=== PATIENT | male | born 1975 | race Caucasian/White ===

== ENCOUNTER 2016-08-25 11:56 | Observation (INO) ==
[2016-08-25 12:49] LABS: Bilirubin,Urine Negative (Negative); Blood,Urine Small (Negative); Clarity,Urine Clear (Clear); Color,Urine Yellow (Yellow); Glucose,Urine (UA) Normal (Normal); Ketones,Urine Negative (Negative); Leukocyte Esterase,Urine Negative (Negative); Nitrite,Urine Negative (Negative); Protein,Urine Negative (Neg-Trace); Specific Gravity,Urine 1.025 (1.010-1.025); Urobilinogen,Urine Normal (Normal)
[2016-08-25 12:52] LABS: Bacteria,Urine None Seen per hpf (None-Few); Hyaline Casts,Urine None Seen per lpf (None-Few); Squamous Epithelial Cell,Urine Few per lpf (None-Few); WBC,Urine 0-3 per hpf (0-3)
[2016-08-25] MEDS ORDERED: *HR* Morphine 2 MG/ML SYRINGE IVP ONE (15:15)
[2016-08-25] MEDS ORDERED: Ondansetron 4 MG/2 ML VIAL IVP ONE (15:15)
--- NOTE | 2016-08-25 15:19 | Emergency Department Note ---
Disposition Clinical Impression: Pancreatitis, Nausea and vomiting Disposition: Admitted As Inpatient Condition: Fair Referrals: NO,PCP [Primary Care Provider] - Forms: Work/School Release, ED Satisfaction Letter Abdominal Pain HPI - General Chief Complaint: ED Abdominal Pain Stated Complaint: ABD pain Time Seen by Provider: 08/25/16 15:05 Source: patient Limitations: no limitations Nursing Notes Reviewed: Yes Vital Signs Reviewed: Yes - History of Present Illness HPI Narrative: Patient is a 41-year-old white male who presents to emergency department with his today with complaints of 36 hour history of intermittent right upper quadrant abdominal pain. Patient rates the pain about a 5 out of 10 in severity currently but states that the pain has been waxing and waning, over the last 36 hours. Patient was initially seen at the urgent care this morning given a GI cocktail with no improvement and was told to come to the emergency department for evaluation. Patient states that the pain seems worsened by eating anything, and nothing seems to make it better. Patient denies any fevers or chills associated with this pain, has been nauseated throughout the last 36 hours and had 1 episode of nonbloody nonbilious vomitus. Patient denies any urinary symptoms no flank discomfort or flank pain, and no bowel changes with these symptoms. Patient had no prior surgeries to his abdomen or pelvis in the past. Patient denies any or testicular symptoms. Patient denies any pain into his chest or thoracic back area. Pain Scale: 10 - Related Data Home Medications Medication Instructions Recorded Confirmed Multivitamin [Multi-Day Vitamins] 1 each PO DAILY 08/25/16 08/25/16 Previous Rx's Medication Instructions Recorded Dicyclomine [Bentyl] 10 mg PO TID PRN #10 capsule 08/25/16 Omeprazole 20 mg PO DAILY #7 tablet. 08/25/16 Ondansetron HCl [Zofran] 4 mg SL TID PRN #10 tablet 08/25/16 Allergies Allergy/AdvReac Type Severity Reaction Status Date / Time colamycin ear drops Allergy Rash Uncoded 05/07/16 20:57 All systems ED: reviewed and negative except as stated. Constitutional: Denies: fever, chills Cardiovascular: Denies: chest pain, palpitations Respiratory: Denies: cough, dyspnea Gastrointestinal: Reports: as per HPI, abdominal pain, nausea, vomiting. Denies : diarrhea, constipation, melena, hematochezia Genitourinary: Denies: urgency, dysuria, frequency, hematuria Musculoskeletal: Denies: back pain, neck pain, myalgia Integumentary: Denies: rash Neurological: Denies: headache, numbness, paresthesias Psychiatric: Denies: anxiety, depression Abdominal Pain PMH - Past Medical History Medical history: Reports: no medical history Male Surgical History: Reports: other Psychiatric history: Reports: no psych history - Social History Smoking status: Never smoker Alcohol use: Reports: none Drug use: Reports: none Physical Exam - General Limitations: no limitations General appearance: alert, in no apparent distress - Head Head exam: atraumatic, normocephalic - Eye Eye exam: Present: normal appearance, PERRL, EOMI. Absent: scleral icterus - ENT ENT exam: normal oropharynx, mucous membranes moist - Neck Neck exam: Present: normal inspection, full ROM. Absent: lymphadenopathy - Chest Chest inspection: Present: normal inspection. Absent: tenderness - Respiratory Respiratory exam: Present: normal lung sounds bilaterally. Absent: respiratory distress, wheezes - Cardiovascular Cardiovascular exam: Present: regular rate, normal rhythm, normal heart sounds. Absent: tachycardia - Abdominal Exam Abdominal exam: Present: soft, tenderness, normal bowel sounds (Patient with moderate tenderness to palpation in the right upper quadrant.). Absent: distention, guarding, rebound, rigidity Abdominal tenderness: Present: RLQ, epigastrium - Rectal Exam Rectal exam: Present: deferred - Extremities Exam Extremities exam: Present: normal inspection, full ROM, normal capillary refill. Absent: tenderness, pedal edema - Back Exam Back exam: Present: normal inspection, full ROM. Absent: CVA tenderness (R), CVA tenderness (L) - Neurological Exam Neurological exam: Present: alert, oriented X3, CN II-XII intact, normal gait. Absent: motor sensory deficit - Psychiatric Psychiatric exam: Present: normal affect, normal mood - Skin Skin exam: Present: warm, dry, normal color. Absent: rash Course Course Narrative: Patient is 41-year-old white male who presents to the emergency room with a 2 day history of right upper quadrant abdominal pain which is been waxing and waning in severity associated with nausea vomiting. Patient states the pain is nonradiating. Patient is hemodynamically stable and afebrile on initial presentation. At this time we can go ahead and obtain IV saline while in administer pain meds and antiemetics. We will get a full lab panel including hepatic panel and lipase and lactate. Patient's exam at this time is suspicious for gallbladder etiology so will initially obtain a gallbladder ultrasound. We will reevaluate following pain medicine administration. - Reevaluation(s) Reevaluation #1: On reevaluation patient's vital signs are stable, he is resting more comfortably stating significant pain relief following pain meds and antiemetics IV. Patient's labs really unremarkable he has a normal white count, H&H are stable, entire comprehensive metabolic panel is within normal limits LFTs total bili are all within normal limits but he does have an elevated lipase which is twice the normal range. Findings suspicious for possible pancreatitis. Since gallbladder disease could be the underlying etiology for this we will proceed with gallbladder ultrasound which is pending at this time. On, reevaluation patient with mild tenderness in the epigastrium and right upper quadrant without peritoneal signs. Patient clinically improved with pain medicines and awaiting ultrasound results. Time: 16:24 Reevaluation #2: Discussed ultrasound results with patient, patient still resting comfortable with this time and is receiving IV fluids. Do not feel CT imaging will add anything to the patient's management at this point in time, there is no evidence of right Warner on ultrasound and the portions of the pancreas that were visualized were within normal limits. Patient denies any alcohol use and there is no findings of gallbladder disease on the ultrasound. This is his first episode of pancreatitis and the etiology is unclear. Patient remains hemodynamically stable at this time and agrees to admission for further evaluation hospitalist has been paged Gallbladder Ultrasound 08/25/16 15:15 IMPRESSION: Hepatic steatosis. D/ / Tawanda Hsieh MD / Tawanda Hsieh MD Interpreting Provider: Tawanda Hsieh MD Time: 17:22 Reevaluation #3: Test with hospitalist at 1553 except the patient for admission and requested maintenance IV fluids to be added. Patient remains free resting comfortably with stable vital signs at this time. Time: 17:59 Vital Signs Temperature 98.3 F 08/25/16 12:26 Pulse Rate 67 08/25/16 12:26 Respiratory Rate 16 08/25/16 12:26 Blood Pressure 131/74 08/25/16 12:26 O2 Sat by Pulse Oximetry 98 08/25/16 12:26 Temperature 98.3 F 08/25/16 12:26 Pulse Rate 67 08/25/16 12:26 Respiratory Rate 16 08/25/16 12:26 Blood Pressure 131/74 08/25/16 12:26 O2 Sat by Pulse Oximetry 98 08/25/16 12:26 Oxygen Delivery Oxygen Delivery Room Air Abdominal Pain - Differential Diagnosis Differential Diagnosis: Likely: abdominal pain non-specific, pancreatitis, other (GERD, cholecystitis, lithiasis, choledocholithiasis, peptic ulcer disease ) - Medical Records Medical records reviewed: Yes I reviewed the patient's medical records. - Lab Data Lab results reviewed: Yes I reviewed the patient's lab results. Result diagrams: 08/25/16 15:35 08/25/16 15:35 Lab Results 08/25/16 08/25/16 08/25/16 Range/Units 12:35 15:35 15:35 WBC 7.3 (4.3-11.1) K/mcL RBC 4.95 (4.19-5.50) M/mcL Hgb 15.7 (12.9-16.9) g/dL Hct 46.4 (37.5-50.1) % MCV 93.7 (83.0-100.0) fL MCH 31.7 (28.0-33.3) pg MCHC 33.8 (31.6-35.5) g/dL RDW 11.9 (11.5-14.5) % Plt Count 234 (140-400) K/mcL MPV 10.0 (9.4-12.4) fL Immature Gran % 0.3 (0-4) % Seg Neutrophils % 53.3 % Lymphocytes % 31.1 % Monocytes % 12.3 % Eosinophils % 2.5 % Basophils % 0.5 % Neutrophils # 3.9 (1.6-8.9) K/mcL Lymphocytes # 2.3 (0.6-4.6) K/mcL Monocytes # 0.9 (0.0-1.3) K/mcL Eosinophils # 0.2 (0.0-0.6) K/mcL Basophils # 0.0 (0.0-0.2) K/mcL Sodium 141 (136-145) mEq/L Potassium 3.7 (3.5-4.5) mEq/L Chloride 105 (98-109) mEq/L Carbon Dioxide 28 (19-29) mEq/L BUN 14 (8-26) mg/dL Creatinine 0.86 (0.72-1.25) mg/dL Est GFR ( Amer) > 60 (> 60) Est GFR (Non-Af Amer) > 60 (> 60) BUN/Creatinine Ratio 16 (6-26) Glucose 90 (70-99) mg/dL Calculated Osmolality 292 (280-300) Lactic Acid (0.5-2.2) mmol/L Calcium 9.5 (8.6-10.8) mg/dL Total Bilirubin 0.7 (0.2-1.2) mg/dL Direct Bilirubin 0.2 (0.0-0.5) mg/dL Indirect Bilirubin 0.5 (0.0-1.2) mg/dL AST 23 (5-34) Units/L ALT 42 (0-55) Units/L Alkaline Phosphatase 75 (38-126) Units/L Serum Total Protein 7.3 (6.0-8.3) g/dL Albumin 4.1 (3.5-5.0) g/dL Globulin 3.2 (2.4-3.5) g/dL Albumin/Globulin Ratio 1.3 (1.1-2.2) Lipase 147 H (8-78) Units/L Urine Color Yellow (Yellow) Urine Clarity Clear (Clear) Urine pH 6.0 (5.0-8.0) pH Units Ur Specific Spencer 1.025 (1.010-1.025) Urine Protein Negative (Neg-Trace) mg/dL Urine Glucose (UA) Normal (Normal) mg/dL Urine Ketones Negative (Negative) mg/dL Urine Blood Small H (Negative) Urine Nitrite Negative (Negative) Urine Bilirubin Negative (Negative) Urine Urobilinogen Normal (Normal) mg/dL Ur Leukocyte Esterase Negative (Negative) Urine Microscopic RBC 5-15 H (0-3) per hpf Urine Microscopic WBC 0-3 (0-3) per hpf Ur Squamous Epith Cells Few (None-Few) per lpf Urine Bacteria None Seen (None-Few) per hpf Hyaline Casts None Seen (None-Few) per lpf Ur Culture Indicated? NO (NO) 08/25/16 Range/Units 15:51 WBC (4.3-11.1) K/mcL RBC (4.19-5.50) M/mcL Hgb (12.9-16.9) g/dL Hct (37.5-50.1) % MCV (83.0-100.0) fL MCH (28.0-33.3) pg MCHC (31.6-35.5) g/dL RDW (11.5-14.5) % Plt Count (140-400) K/mcL MPV (9.4-12.4) fL Immature Gran % (0-4) % Seg Neutrophils % % Lymphocytes % % Monocytes % % Eosinophils % % Basophils % % Neutrophils # (1.6-8.9) K/mcL Lymphocytes # (0.6-4.6) K/mcL Monocytes # (0.0-1.3) K/mcL Eosinophils # (0.0-0.6) K/mcL Basophils # (0.0-0.2) K/mcL Sodium (136-145) mEq/L Potassium (3.5-4.5) mEq/L Chloride (98-109) mEq/L Carbon Dioxide (19-29) mEq/L BUN (8-26) mg/dL Creatinine (0.72-1.25) mg/dL Est GFR ( Amer) (> 60) Est GFR (Non-Af Amer) (> 60) BUN/Creatinine Ratio (6-26) Glucose (70-99) mg/dL Calculated Osmolality (280-300) Lactic Acid 0.7 (0.5-2.2) mmol/L Calcium (8.6-10.8) mg/dL Total Bilirubin (0.2-1.2) mg/dL Direct Bilirubin (0.0-0.5) mg/dL Indirect Bilirubin (0.0-1.2) mg/dL AST (5-34) Units/L ALT (0-55) Units/L Alkaline Phosphatase (38-126) Units/L Serum Total Protein (6.0-8.3) g/dL Albumin (3.5-5.0) g/dL Globulin (2.4-3.5) g/dL Albumin/Globulin Ratio (1.1-2.2) Lipase (8-78) Units/L Urine Color (Yellow) Urine Clarity (Clear) Urine pH (5.0-8.0) pH Units Ur Specific Spencer (1.010-1.025) Urine Protein (Neg-Trace) mg/dL Urine Glucose (UA) (Normal) mg/dL Urine Ketones (Negative) mg/dL Urine Blood (Negative) Urine Nitrite (Negative) Urine Bilirubin (Negative) Urine Urobilinogen (Normal) mg/dL Ur Leukocyte Esterase (Negative) Urine Microscopic RBC (0-3) per hpf Urine Microscopic WBC (0-3) per hpf Ur Squamous Epith Cells (None-Few) per lpf Urine Bacteria (None-Few) per hpf Hyaline Casts (None-Few) per lpf Ur Culture Indicated? (NO) - Radiology Data Radiology results reviewed: Yes I reviewed the patient's radiology results.
[2016-08-25 15:46] LABS: Basophils % 0.5 %; Eosinophils # 0.2 K/mcL (0.0-0.6); Eosinophils % 2.5 %; Hematocrit 46.4 % (37.5-50.1); Hemoglobin 15.7 g/dL (12.9-16.9); Immature Granulocytes % 0.3 % (0-4); Lymphocytes # 2.3 K/mcL (0.6-4.6); Lymphocytes % 31.1 %; Mean Corpuscular HGB Conc 33.8 g/dL (31.6-35.5); Mean Corpuscular Hemoglobin 31.7 pg (28.0-33.3); Mean Corpuscular Volume 93.7 fL (83.0-100.0); Monocytes # 0.9 K/mcL (0.0-1.3); Monocytes % 12.3 %; Neutrophils # 3.9 K/mcL (1.6-8.9); Platelet Count 234 K/mcL (140-400); Red Blood Count 4.95 M/mcL (4.19-5.50); Red Cell Distribution Width 11.9 % (11.5-14.5); Segmented Neutrophils % 53.3 %
[2016-08-25 16:02] LABS: Alanine Aminotransferase 42 Units/L (0-55); Albumin 4.1 g/dL (3.5-5.0); Albumin/Globulin Ratio 1.3 (1.1-2.2); Alkaline Phosphatase 75 Units/L (38-126); Aspartate Amino Transferase 23 Units/L (5-34); BUN/Creatinine Ratio 16 (6-26); Bilirubin,Direct 0.2 mg/dL (0.0-0.5); Bilirubin,Indirect 0.5 mg/dL (0.0-1.2); Bilirubin,Total 0.7 mg/dL (0.2-1.2); Blood Urea Nitrogen 14 mg/dL (8-26); Calcium 9.5 mg/dL (8.6-10.8); Carbon Dioxide 28 mEq/L (19-29); Chloride 105 mEq/L (98-109); Globulin 3.2 g/dL (2.4-3.5); Glucose 90 mg/dL (70-99); Lipase 147 Units/L (8-78); Osmolality,Calculated 292 (280-300); Potassium 3.7 mEq/L (3.5-4.5); Sodium 141 mEq/L (136-145); Total Protein 7.3 g/dL (6.0-8.3); eGFR For African Americans > 60 (> 60); eGFR For Non-African Americans > 60 (> 60)
[2016-08-25] MEDS ORDERED: 0.9 % Sodium Chloride 1,000 ML IVC ONE (16:21)
[2016-08-25] MEDS ORDERED: 0.9 % Sodium Chloride 1,000 ML IVC SCH ×2 (18:00→20:00)
[2016-08-25] MEDS ORDERED: Ondansetron 4 MG/2 ML VIAL IVP PRN (19:55)
[2016-08-25] MEDS ORDERED: Naloxone 0.4 MG/ML INJ IVP PRN (19:55)
--- NOTE | 2016-08-25 19:58 | Internal Med History&Physical ---
Date of Encounter: 08/25/16 Time of Encounter: 19:40 Assessment and Plan (1) RUQ pain Current visit: Yes Status: Acute patient who is overweight and no prior similar presentation comes in with RUQ pain concerning for cholelithiasis vs PUD vs GERD vs pancreatitis, his chemistry and clinical presentation does not fit acute pancreatitis, his abdominal USG did not suggest gallstones, it could be that the stones have passed or this is of liver pathology, his USG showed hepatic steatosis, we will admit for symptoms control and monitor vitals overnight, should his symptoms worsen we will consider abdomino-pelvic CT for further evaluation (2) Overweight (BMI 25.0-29.9) Current visit: Yes Status: Chronic based on BMI, we will get Nutrition to weigh in, particularly regarding the associated hepatic steatosis Internal Medicine - H&P: HPI Chief complaint: abdominal pain Admitted From: Emergency Dept Plans for Post Hospital Care: Home History of present illness: Mr. Eisenberg is a 41 year old male with no prior presentation comes in with abdominal pain. He was in his usual state of health until about 36 hours prior to presentation when he began to have right upper quadrant pain, The pain is described as squeezing, intermittent, lasts for about 15-20 minutes, repeat episodes lasts longer. It is 5/10 in severity, non radiating. The pain is associated with nausea, with non bilious vomiting. He also had diarrhea that was non bloody. He denies fever or chills. He came to the ER because the episodes were getting increasingly longer, he could not advance any aggravating or alleviating factors. Past Med Surg Social Fam HX - Past Medical History Source: patient Medical history: no medical history Psychiatric history: no psych history - Past Surgical History Surgical History: other (broken jaw in 1994 requiring wires, left wrist ganglion cyst removal) - Social History Smoking Status: Never smoker Smokeless Tobacco Status: No Alcohol use: none Drug use: none Occupational status: employed (as an personal assistant) Current living situation: Home - Independent Activity Level: Independent ambulation Additional social history: with 2 daughters - Family History Father Living Status: Still Living Hx Family Cardiac Disorders: Yes (AFIB) Hx Family Respiratory Disorders: No Hx Family Cancer: Yes (Kidney Cancer, Lung and Brain) Hx Family GI Disorders: No Hx Family Genitourinary Disorders: No Hx Family Endocrine Disorder: Yes (Diabetes) Hx Family Musculoskeletal Disorders: No Hx Family Neuromuscular Disorders: No Hx Family Neurologic Disorders: No Hx Family HEENT Disorders: No Hx Family Autoimmune Disorders: No Hx Family Reproductive Disorders: No Hx Family Psychosocial Disorders: No Hx Family Medical Disorders: No - Additional Family History Additional family history: his paternal father and mother both had cancer, his father is alive though he has metastatic kidney cancer to the lung and brain, he also has HTN, his mother is alive and has well controlled DM type 2, no known family history of GI problems Internal Medicine - H&P: Meds Dicyclomine [Bentyl] 10 mg PO TID PRN #10 capsule 08/25/16 [Rx] Multivitamin [Multi-Day Vitamins] 1 each PO DAILY 08/25/16 [History] Omeprazole 20 mg PO DAILY #7 tablet. 08/25/16 [Rx] Ondansetron HCl [Zofran] 4 mg SL TID PRN #10 tablet 08/25/16 [Rx] Allergies colamycin ear drops Allergy (Uncoded 05/07/16 20:57) Rash All Systems PM: A 10-system review of systems was performed and is negative for pertinent findings except as documented above in the HPI. - Constitutional Vitals: Temp Pulse Resp BP Pulse Ox 98.3 F 70 14 136/89 98 08/25/16 12:26 08/25/16 18:02 08/25/16 18:39 08/25/16 18:39 08/25/16 18:02 PHYSICAL EXAMINATION: GENERAL: Adult male, lying in bed with no sign of pain or distress, obese looking, HEENT: NC/AT, EOMI, PERRLA, anicteric sclera, normal conjunctiva, supple, clear nares, moist mucous membranes, clear oropharynx, central uvula RESP: no chest wall tenderness with palpation, lungs are clear to auscultation bilaterally, good AE bilaterally, No crackles or wheeze CARDIO: Normal hearts sounds; S1 and 2, RRR with no murmurs, no JVD, no ankle edema GI: Soft, full, RUQ tenderness with no guarding or rebound tenderness, no organomegaly felt, normal bowel sounds heard MUSCULOSKELETAL: grossly normal movements bilaterally, no deformities noted, no calf tenderness EXTREMITIES: No clubbing, cyanosis or edema, NEUROLOGIC: CN 2-12 intact grossly. No motor/sensory deficit appreciated, PSYCHIATRY: AAO x 3. Mood is fair, exhibits appropriate judgement SKIN: left wrist surgical scar Internal Med - H&P Results - Labs CBC & Chem 7: 08/26/16 04:23 08/26/16 04:23 - Diagnostic Studies US - abdomen Status: image reviewed by me
[2016-08-25] MEDS: *HR* Heparin 5,000 UNIT/ML VIAL SQ SCH (22:11)
[2016-08-25] MEDS: *HR* Morphine 2 MG/ML SYRINGE IVP PRN (22:15)
[2016-08-26 05:34] LABS: Basophils % 0.6 %; Eosinophils # 0.2 K/mcL (0.0-0.6); Eosinophils % 3.3 %; Hematocrit 43.5 % (37.5-50.1); Hemoglobin 14.5 g/dL (12.9-16.9); Immature Granulocytes % 0.2 % (0-4); Lymphocytes % 31.7 %; Mean Corpuscular HGB Conc 33.3 g/dL (31.6-35.5); Mean Corpuscular Hemoglobin 31.7 pg (28.0-33.3); Mean Platelet Volume 9.9 fL (9.4-12.4); Monocytes # 0.7 K/mcL (0.0-1.3); Monocytes % 10.5 %; Neutrophils # 3.4 K/mcL (1.6-8.9); Platelet Count 214 K/mcL (140-400); Red Blood Count 4.58 M/mcL (4.19-5.50); Red Cell Distribution Width 11.9 % (11.5-14.5); Segmented Neutrophils % 53.7 %
[2016-08-26 05:47] LABS: Hemoglobin A1C 5.5 %
[2016-08-26 05:50] LABS: Alanine Aminotransferase 37 Units/L (0-55); Albumin 3.5 g/dL (3.5-5.0); Albumin/Globulin Ratio 1.3 (1.1-2.2); Alkaline Phosphatase 66 Units/L (38-126); Aspartate Amino Transferase 20 Units/L (5-34); BUN/Creatinine Ratio 13 (6-26); Blood Urea Nitrogen 11 mg/dL (8-26); Calcium 8.7 mg/dL (8.6-10.8); Carbon Dioxide 26 mEq/L (19-29); Chloride 105 mEq/L (98-109); Globulin 2.7 g/dL (2.4-3.5); Glucose 91 mg/dL (70-99); Magnesium 2.1 mg/dL (1.6-2.6); Osmolality,Calculated 283 (280-300); Phosphorous 2.4 mg/dL (2.3-4.7); Potassium 3.6 mEq/L (3.5-4.5); Sodium 137 mEq/L (136-145); Total Protein 6.2 g/dL (6.0-8.3); eGFR For African Americans > 60 (> 60); eGFR For Non-African Americans > 60 (> 60)
[2016-08-26 05:51] LABS: Bilirubin,Total 1.1 mg/dL (0.2-1.2)
[2016-08-26] MEDS: *HR* Heparin 5,000 UNIT/ML VIAL SQ SCH ×3 (06:21→21:55)
[2016-08-26] MEDS: 0.9 % Sodium Chloride 1,000 ML IVC SCH ×2 (06:21→16:45)
[2016-08-26 09:48] LABS: Lipase 64 Units/L (8-78)
--- NOTE | 2016-08-26 11:29 | Internal Med Progress Note ---
<Elizabeth Saravia Leonila - Last Filed: 08/26/16 18:03> Date of Encounter: 08/26/16 Time of Encounter: 10:30 - Assessment and plan (1) Abdominal pain Current Visit: No Status: Acute Assessment and plan: Patient continues to have spasms of epigastric and RUQ pain of uncertain etiology US GB negative for stones or GB wall thickening. However, did demonstrate hepatic steatosis CT abdomen is without acute process Patient will have HIDA in am Continue PPI Start Pepcid BID H. pylori antigen pending Stool occult blood pending Qualifiers: Abdominal location: epigastric Qualified Code(s): R10.13 - Epigastric pain (2) Elevated lipase Current Visit: Yes Status: Acute Assessment and plan: CT does not demonstrate signs or symptoms of acute pancreatitis Lipase level does not meet criteria for acute pancreatitis Repeat lipase is in normal range (3) Hematuria Current Visit: Yes Status: Acute Assessment and plan: Repeat UA pending (4) DVT prophylaxis Current Visit: Yes Status: Acute Assessment and plan: Heparin SQ TID - Subjective Interval history: Patient states that he began having abdominal pain on Thursday08/23/16 that doubled him over onto his knees. Pain was followed by non-bloody vomiting and watery diarrhea. Patient unaware if diarrhea contained blood or melena. Abdominal pain was isolated to epigastric region and between epigastric and RUQ. Pain was non-radiating and described as a 6/10. Patient states that pain is intermittent and is exacerbated by eating or drinking. Patient states that pain occurs immediately after food or drink hits his stomach. Pain also occurs intermittently without food or drink. Admits using Aleve approximately twice per month for headache. Denies smoking, drinking alcohol, and illicit drug use. States that he eats fast food on a regular basis. Patient works at [employer] in [place] and states that he walks approximately 10 miles per day and lifts heavy bags of feed while at work. Patient states he has had no further vomiting or bowel movements since Thursday Denies recent upper respiratory infections, sinus pain, nasal congestion, ear pain Denies chest pain Denies dyspnea Denies Abdominal pain other than that described above Denies muscle aches or pains - Constitutional Vitals: Temp Pulse Resp BP Pulse Ox 97.9 F 64 16 117/86 97 08/26/16 07:00 08/26/16 07:00 08/26/16 07:00 08/26/16 07:00 08/26/16 07:00 General appearance: Present: A&O X 3, pleasant, answers questions appropriately - Head Head exam: Present: atraumatic, normocephalic - Eye Eye exam: Present: EOMI, PERRL, sclera anicteric - Neck Neck exam general surgery: Present: full ROM, supple, trachea midline - Respiratory Respiratory exam: Present: chest wall tenderness (Lower Right chest wall), CTAB. Absent: accessory muscle use, rales, rhonchi, wheezes - Cardiovascular Cardiovascular exam: Present: RRR, +S1, +S2. Absent: diastolic murmur, gallop, rubs, systolic murmur - GI/Abdominal GI/Abdominal exam: Present: guarding, normal bowel sounds, soft, tenderness, no peritoneal signs. Absent: distended Additional comments: TTP to epigastric and abdominal area between epigastric and RUQ, voluntary guarding to epigastric region, no masses palpable - Extremities Exam Extremities exam: Present: warm, radial pulses palpable and symetrical. Absent : calf tenderness, cyanotic, pedal edema - Neurological Exam Neurological exam: Present: CN II-XII intact, oriented X3, no focal deficits. Absent: facial droop, speech deficit - Skin Skin exam: Present: dry, intact Internal Medicine: Result - Labs CBC & Chem 7: 08/26/16 04:23 08/26/16 04:23 Labs: Short CBC 08/26/16 Range/Units 04:23 WBC 6.3 (4.3-11.1) K/mcL Hgb 14.5 (12.9-16.9) g/dL Hct 43.5 (37.5-50.1) % Plt Count 214 (140-400) K/mcL Neutrophils # 3.4 (1.6-8.9) K/mcL BMP 08/26/16 04:23 Sodium 137 Potassium 3.6 Chloride 105 Carbon Dioxide 26 BUN 11 Creatinine 0.83 Glucose 91 Calcium 8.7 Liver Function 08/26/16 Range/Units 04:23 Total Bilirubin 1.1 D (0.2-1.2) mg/dL AST 20 (5-34) Units/L ALT 37 (0-55) Units/L Alkaline Phosphatase 66 (38-126) Units/L Albumin 3.5 (3.5-5.0) g/dL - Impressions Gallbladder Ultrasound 08/25/16 15:15 IMPRESSION: Hepatic steatosis. D/ / Tawanda Hsieh MD / Tawanda Hsieh MD Interpreting Provider: Tawanda Hsieh MD Abdomen/Pelvis CT 08/26/16 11:55 IMPRESSION: 1. No acute findings in the abdomen or pelvis. 2. No radiodense gallstones or CT findings of cholecystitis. 3. Normal course and caliber appendix. D/ / 08/26/2016 13:55:12 Rosangela Russell MD / [email or web address] Interpreting Provider: Rosangela Russell MD Consult Discharge Plan - Plan Referrals: NO,PCP [Primary Care Provider] - <Kwesi Rivera - Last Filed: 08/26/16 18:55> Date of Encounter: 08/26/16 - Constitutional Vitals: Temp Pulse Resp BP Pulse Ox 98.1 F 63 16 128/81 97 08/26/16 15:54 08/26/16 15:54 08/26/16 15:54 08/26/16 15:54 08/26/16 15:54 Internal Medicine: Result - Labs CBC & Chem 7: 08/26/16 04:23 08/26/16 04:23 Labs: Short CBC 08/26/16 Range/Units 04:23 WBC 6.3 (4.3-11.1) K/mcL Hgb 14.5 (12.9-16.9) g/dL Hct 43.5 (37.5-50.1) % Plt Count 214 (140-400) K/mcL Neutrophils # 3.4 (1.6-8.9) K/mcL BMP 08/26/16 04:23 Sodium 137 Potassium 3.6 Chloride 105 Carbon Dioxide 26 BUN 11 Creatinine 0.83 Glucose 91 Calcium 8.7 Liver Function 08/26/16 Range/Units 04:23 Total Bilirubin 1.1 D (0.2-1.2) mg/dL AST 20 (5-34) Units/L ALT 37 (0-55) Units/L Alkaline Phosphatase 66 (38-126) Units/L Albumin 3.5 (3.5-5.0) g/dL - Impressions Impressions Abdomen/Pelvis CT 08/26/16 11:55 IMPRESSION: 1. No acute findings in the abdomen or pelvis. 2. No radiodense gallstones or CT findings of cholecystitis. 3. Normal course and caliber appendix. D/ / 08/26/2016 13:55:12 Rosangela Russell MD / [email or web address] Interpreting Provider: Rosangela Russell MD - Attending Attestation I examined this patient and my medical decision-making was reviewed with the Resident Physician, Dr Elizabeth Saravia. I agree with the documented findings, disposition and treatment plan as described except to the extent set forth below. Please see addendum dictated earlier today.
[2016-08-26] MEDS ORDERED: GI Cocktail 40 ML EACH PO ONE (11:44)
[2016-08-26] MEDS: *HR* Morphine 2 MG/ML SYRINGE IVP PRN ×2 (11:58→21:55)
[2016-08-26 12:46] LABS: Chol/HDL Ratio 5.2 (0-4.9)
[2016-08-26] MEDS ORDERED: Acetaminophen IV 1,000 MG/100 ML INFUS..BTL IVPB PRN (18:47)
--- NOTE | 2016-08-26 18:53 | Event Note ---
Date of Encounter: 08/26/16 Time of Encounter: 14:00 I examined this patient and my medical decision-making was reviewed with the Resident Physician, Dr Elizbaeth Saravia. I agree with the documented findings, disposition and treatment plan as described except to the extent set forth below. Patient reports sharp severe right upper quadrant pain which has been on and off for the last 4 days. Sometimes occurring after he eats, sometimes occurring at night. It usually lasts 30-40 minutes and benefits associated with nausea. Workup included a gallbladder ultrasound which found no evidence of gallbladder pathology. Lipase was mildly elevated. Repeat lipase today is normal. CT of the abdomen and pelvis today reveals no acute pathology. Plan: I suspect functional gallbladder disorder or biliary dyskinesia. Plan for [facility] nuclear medicine hepatobiliary scan tomorrow. If positive will consult surgery. If negative will consult GI. Differential also includes peptic ulcer disease and he may need an EGD if gallbladder scan is negative.
[2016-08-26 19:59] LABS: Bilirubin,Urine Negative (Negative); Blood,Urine Negative (Negative); Clarity,Urine Clear (Clear); Color,Urine Yellow (Yellow); Glucose,Urine (UA) Normal (Normal); Ketones,Urine Negative (Negative); Leukocyte Esterase,Urine Negative (Negative); Nitrite,Urine Negative (Negative); PH,Urine 6.5 pH Units (5.0-8.0); Protein,Urine Negative (Neg-Trace); Specific Gravity,Urine 1.009 (1.010-1.025); Urobilinogen,Urine Normal (Normal)
[2016-08-26] MEDS: Sucralfate 1 GM TABLET PO SCH (21:55)
[2016-08-26] MEDS: Famotidine 20 MG TABLET PO SCH (21:55)
[2016-08-27] MEDS: 0.9 % Sodium Chloride 1,000 ML IVC SCH ×2 (01:46→19:38)
[2016-08-27 05:10] LABS: Basophils % 0.6 %; Eosinophils # 0.2 K/mcL (0.0-0.6); Hematocrit 44.6 % (37.5-50.1); Immature Granulocytes % 0.2 % (0-4); Lymphocytes # 1.7 K/mcL (0.6-4.6); Mean Corpuscular HGB Conc 33.6 g/dL (31.6-35.5); Mean Corpuscular Hemoglobin 32.2 pg (28.0-33.3); Mean Corpuscular Volume 95.7 fL (83.0-100.0); Mean Platelet Volume 9.8 fL (9.4-12.4); Monocytes # 0.5 K/mcL (0.0-1.3); Monocytes % 9.8 %; Platelet Count 212 K/mcL (140-400); Red Blood Count 4.66 M/mcL (4.19-5.50); Red Cell Distribution Width 12.1 % (11.5-14.5); Segmented Neutrophils % 55.4 %
[2016-08-27] MEDS: *HR* Heparin 5,000 UNIT/ML VIAL SQ SCH (05:37)
[2016-08-27 05:38] LABS: BUN/Creatinine Ratio 10 (6-26); Blood Urea Nitrogen 9 mg/dL (8-26); Calcium 9.1 mg/dL (8.6-10.8); Carbon Dioxide 29 mEq/L (19-29); Chloride 107 mEq/L (98-109); Glucose 97 mg/dL (70-99); Osmolality,Calculated 291 (280-300); Potassium 3.9 mEq/L (3.5-4.5); Sodium 141 mEq/L (136-145); eGFR For African Americans > 60 (> 60); eGFR For Non-African Americans > 60 (> 60)
--- NOTE | 2016-08-27 13:02 | Internal Med Progress Note ---
<Elizabeth Saravia Leonila - Last Filed: 08/27/16 12:58> Date of Encounter: 08/27/16 Time of Encounter: 11:30 - Assessment and plan (1) Abdominal pain Current Visit: No Status: Acute Assessment and plan: 08/27/16 HIDA scan demonstrated low ejection fraction of GB, no acute cholecystitis. HIDA demosntrated enterogastric reflux. Will consult surgery for possible surgery, although cholecystectomy will likely be performed as an outpatient Patient stable for discharge with pain medication follow recommendations by surgery 08/26/16 Patient continues to have spasms of epigastric and RUQ pain of uncertain etiology US GB negative for stones or GB wall thickening. However, did demonstrate hepatic steatosis CT abdomen is without acute process Patient will have HIDA in am Continue PPI Start Pepcid BID H. pylori antigen pending Stool occult blood pending Qualifiers: Abdominal location: epigastric Qualified Code(s): R10.13 - Epigastric pain (2) Elevated lipase Current Visit: Yes Status: Acute Assessment and plan: CT does not demonstrate signs or symptoms of acute pancreatitis Lipase level does not meet criteria for acute pancreatitis Repeat lipase is in normal range (3) Hematuria Current Visit: Yes Status: Resolved Assessment and plan: Repeat UA negative for blood (4) DVT prophylaxis Current Visit: Yes Status: Acute Assessment and plan: Heparin SQ TID - Subjective Interval history: 08/27/16 Patient recently returned from HIDA scan. Patient states that he did not have symptoms of severe abdominal pain during the HIDA scan. Patient with no complains at this time. 08/26/16 Patient states that he began having abdominal pain on Thursday08/23/16 that doubled him over onto his knees. Pain was followed by non-bloody vomiting and watery diarrhea. Patient unaware if diarrhea contained blood or melena. Abdominal pain was isolated to epigastric region and between epigastric and RUQ. Pain was non-radiating and described as a 6/10. Patient states that pain is intermittent and is exacerbated by eating or drinking. Patient states that pain occurs immediately after food or drink hits his stomach. Pain also occurs intermittently without food or drink. Admits using Aleve approximately twice per month for headache. Denies smoking, drinking alcohol, and illicit drug use. States that he eats fast food on a regular basis. 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 Patient states he has had no further vomiting or bowel movements since Thursday Denies recent upper respiratory infections, sinus pain, nasal congestion, ear pain Denies chest pain Denies dyspnea Denies Abdominal pain other than that described above Denies muscle aches or pains - Constitutional Vitals: Temp Pulse Resp BP Pulse Ox 98.8 F 57 16 144/81 98 08/27/16 11:11 08/27/16 11:11 08/27/16 11:11 08/27/16 11:11 08/27/16 11:11 General appearance: Present: A&O X 3, pleasant, answers questions appropriately - Head Head exam: Present: atraumatic, normocephalic - Eye Eye exam: Present: EOMI, PERRL, conjuntiva pink, sclera anicteric - Neck Neck exam general surgery: Present: full ROM, supple, trachea midline - Respiratory Respiratory exam: Present: CTAB. Absent: accessory muscle use, rales, rhonchi, wheezes - Cardiovascular Cardiovascular exam: Present: RRR, +S1, +S2. Absent: diastolic murmur, gallop, rubs, systolic murmur - GI/Abdominal GI/Abdominal exam: Present: normal bowel sounds, soft, tenderness (TTP to epigastric and RUQ. Voluntary guarding. ), no peritoneal signs. Absent: distended - Extremities Exam Extremities exam: Present: warm, radial pulses palpable and symetrical. Absent : calf tenderness, cyanotic, pedal edema - Neurological Exam Neurological exam: Present: CN II-XII intact, oriented X3, no focal deficits. Absent: facial droop, speech deficit - Skin Skin exam: Present: dry, intact Internal Medicine: Result - Labs CBC & Chem 7: 08/27/16 04:53 08/27/16 04:53 Labs: Short CBC 08/27/16 Range/Units 04:53 WBC 5.4 (4.3-11.1) K/mcL Hgb 15.0 (12.9-16.9) g/dL Hct 44.6 (37.5-50.1) % Plt Count 212 (140-400) K/mcL Neutrophils # 3.0 (1.6-8.9) K/mcL BMP 08/27/16 04:53 Sodium 141 Potassium 3.9 Chloride 107 Carbon Dioxide 29 BUN 9 Creatinine 0.89 Glucose 97 Calcium 9.1 Urine 08/26/16 Range/Units 19:14 Urine Color Yellow (Yellow) Urine Clarity Clear (Clear) Urine pH 6.5 (5.0-8.0) pH Units Ur Specific [place] 1.009 L (1.010-1.025) Urine Protein Negative (Neg-Trace) mg/dL Urine Glucose (UA) Normal (Normal) mg/dL - Impressions Impressions Abdomen/Pelvis CT 08/26/16 11:55 IMPRESSION: 1. No acute findings in the abdomen or pelvis. 2. No radiodense gallstones or CT findings of cholecystitis. 3. Normal course and caliber appendix. D/ / 08/26/2016 13:55:12 Rosangela Russell MD / tito Interpreting Provider: Rosangela Russell MD Liver Scan Nuclear Medicine 08/26/16 14:43 IMPRESSION: 1. No scintigraphic findings of acute cholecystitis. 2. Low gallbladder ejection fraction potentially due to chronic cholecystitis or biliary dyskinesia. 3. Enterogastric reflux, which can result in bile gastritis. D/ / South Rocha MD / South Rocha MD Interpreting Provider: South Rocha MD Consult Discharge Plan - Plan Additional Instructions: #1 may shower 08/28/16, no tub bath for 2 weeks #2 wash incisions with soap and water and pat dry daily #3 no lifting, pushing, pulling more than 15 pounds for the next 2 weeks #4 no driving until off narcotics for 24 hours and able to safely react in the car #5 may climb stairs Referrals: Ami Gray SENIOR DATA MINING ANALYST [Advanced Practice Nurse] - 09/08/16 8:30 am (surgery follow-up) NO,PCP [Primary Care Provider] - Prescriptions: OxyCODONE/APAP 5/325 [Percocet 5/325 MG] 1 each PO Q6HR PRN #30 tablet PRN Reason: Pain Docusate [Colace] 100 mg PO BID #30 capsule <Kwesi Rivera - Last Filed: 08/27/16 19:35> Date of Encounter: 08/27/16 - Constitutional Vitals: Temp Pulse Resp BP Pulse Ox 98.7 F 73 16 150/83 96 08/27/16 19:19 08/27/16 19:19 08/27/16 19:19 08/27/16 19:19 08/27/16 19:19 Internal Medicine: Result - Labs CBC & Chem 7: 08/27/16 04:53 08/27/16 04:53 Labs: Short CBC 08/27/16 Range/Units 04:53 WBC 5.4 (4.3-11.1) K/mcL Hgb 15.0 (12.9-16.9) g/dL Hct 44.6 (37.5-50.1) % Plt Count 212 (140-400) K/mcL Neutrophils # 3.0 (1.6-8.9) K/mcL BMP 08/27/16 04:53 Sodium 141 Potassium 3.9 Chloride 107 Carbon Dioxide 29 BUN 9 Creatinine 0.89 Glucose 97 Calcium 9.1 Urine 08/26/16 Range/Units 19:14 Urine Color Yellow (Yellow) Urine Clarity Clear (Clear) Urine pH 6.5 (5.0-8.0) pH Units Ur Specific [place] 1.009 L (1.010-1.025) Urine Protein Negative (Neg-Trace) mg/dL Urine Glucose (UA) Normal (Normal) mg/dL - Impressions Impressions Liver Scan Nuclear Medicine 08/26/16 14:43 IMPRESSION: 1. No scintigraphic findings of acute cholecystitis. 2. Low gallbladder ejection fraction potentially due to chronic cholecystitis or biliary dyskinesia. 3. Enterogastric reflux, which can result in bile gastritis. D/ / South Rocha MD / South Rocha MD Interpreting Provider: South Rocha MD Cholangiogram,Operative 08/27/16 17:10 IMPRESSION: No evidence of a retained stone seen within the opacified biliary tree. D/ / Jona Christine MD / Jona Christine MD Interpreting Provider: Jona Christine MD - Attending Attestation I examined this patient and my medical decision-making was reviewed with the Resident Physician, Dr Elizabeth Saravia. I agree with the documented findings, disposition and treatment plan as described except to the extent set forth below. Patient reports improvement in his abdominal pain he continues to have mild to moderate episodes of right upper quadrant abdominal pain associated with nausea , no vomiting. Gallbladder scan revealed chronic cholecystitis versus biliary dyskinesia with low gallbladder ejection fraction. On exam his distress abdomen is soft nontender nondistended with normoactive bowel sounds. Heart is regular S1 and S2 with no murmurs Plan: Consult surgery for possible need for cholecystectomy. He remains at high risk for morbidity and mortality and complications due to treatment with IV opiates for pain.
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
--- NOTE | 2016-08-27 16:14 | Anesthesia Evaluation PreOp ---
Date of Encounter: 08/27/16 Time of Encounter: 16:12 - Past History Planned Operation: Laparoscopic Cholecystectomy Cardiac History: Denies any Significant Hx Pulmonary History: Denies Any Significant HX THIRD HELPER History: Denies Any Significant HX Other Medical History: Denies Any Significant HX Anesthesia History: Past Anesthesia, Problems (emergence delirium) Alcohol Use: none Drug use: none Medications and Allergies Dicyclomine [Bentyl] 10 mg PO TID PRN #10 capsule 08/25/16 [Rx] Multivitamin [Multi-Day Vitamins] 1 each PO DAILY 08/25/16 [History] Omeprazole 20 mg PO DAILY #7 tablet. 08/25/16 [Rx] Ondansetron HCl [Zofran] 4 mg SL TID PRN #10 tablet 08/25/16 [Rx] Docusate [Colace] 100 mg PO BID #30 capsule 08/27/16 [Rx] OxyCODONE/APAP 5/325 [Percocet 5/325 MG] 1 each PO Q6HR PRN #30 tablet 08/27/16 [Rx] Allergies colamycin ear drops Allergy (Uncoded 05/07/16 20:57) Rash - Meds/Allergy Pre-op Review Medications Reviewed: Yes Allergies Reviewed: Yes Beta Blockers on Current Med List: No Anesthesia Results - Labs 08/27/16 04:53 08/27/16 04:53 Anesthesia Exam Vital Signs/O2 Sat, Most Current Temp Pulse Resp BP Pulse Ox 98.6 F 56 16 150/93 97 08/27/16 14:04 08/27/16 14:04 08/27/16 14:04 08/27/16 14:04 08/27/16 14:04 Height: 6'4''/1.93 m Weight: 240 lbs/108.9 kg NPO (# of Hours): 8 Pain Scale: 0 Pain Scale Used: Numeric (1 - 10) - HEENT Pupil (Motor): EOMI Mallampati: II Teeth: Normal - THIRD HELPER LOC: Oriented THIRD HELPER Motor: Normal RUE, Normal LUE, Normal RLE, Normal LLE, Normal Face THIRD HELPER Sensory: Normal: RUE, LUE, RLE, LLE, Face - Cardiac Rhythm: Regular Murmur: None - Pulmonary Breath Sounds: bilateral Clear Respiratory Effort: Symmetrical Anesthesia Assess/Plan ASA Score: 1 Modified [place] Scale for Level of Consciousness: Cooperative, oriented, and tranquil Anesthetic Plan: General Monitoring Plan: Standard Monitors Recovery Plan: PACU
[2016-08-27] MEDS ORDERED: *HR* Midazolam HCl 5 MG/5 ML VIAL IVP ONE (17:25)
[2016-08-27] MEDS ORDERED: *HR* Propofol 200 MG/20 ML VIAL IVP ONE (17:25)
[2016-08-27] MEDS ORDERED: *HR* Succinylcholine 200 MG/10 ML VIAL IVP ONE (17:25)
[2016-08-27] MEDS ORDERED: Lidocaine -MPF 4% 5 ML AMPUL ONE (17:25)
[2016-08-27] MEDS ORDERED: Lidocaine -MPF 2% 2 ML VIAL ONE ×2 (17:25)
[2016-08-27] MEDS ORDERED: *HR* Rocuronium Bromide 50 MG/5 ML VIAL ONE (17:25)
[2016-08-27] MEDS ORDERED: *HR* Phenylephrine 10 MG/ML VIAL ONE (17:25)
[2016-08-27] MEDS ORDERED: *HR* FentaNYL (PF) 100 MCG/2 ML VIAL ONE (17:25)
[2016-08-27] MEDS ORDERED: *HR* Promethazine 25 MG/ML VIAL IVP PRN (17:27)
[2016-08-27] MEDS ORDERED: *HR* HYDROmorphone (PF) 1 MG/ML SYRINGE IVP PRN (17:27)
[2016-08-27] MEDS ORDERED: Neostigmine Methylsulfate 3 MG/3 ML SYRINGE ONE (17:27)
[2016-08-27] MEDS ORDERED: Ondansetron 4 MG/2 ML VIAL IVP PRN (17:27)
[2016-08-27] MEDS ORDERED: Ketorolac 30 MG/ML VIAL ONE (17:29)
[2016-08-27] MEDS ORDERED: Dexamethasone 4 MG/ML VIAL ONE (17:30)
--- NOTE | 2016-08-27 18:12 | Anesthesia Evaluation Post Op ---
Date of Encounter: 08/27/16 Time of Encounter: 18:10 - Vital Signs Vital Signs: Vital Signs/O2 Sat, Most Current Temp Pulse Resp BP Pulse Ox 97.2 F L 55 20 149/102 94 08/27/16 17:38 08/27/16 17:58 08/27/16 17:58 08/27/16 17:58 08/27/16 17:58 - Lungs Lungs: Clear Ascult./Percussion - Airway Airway: Non-obstructed - Cardiovascular Regular Rate - Mental Status Mental Status: Alert & Oriented, Answers Appropriately - Pain Pain Scale: 3 Pain Scale used: Numeric (1 - 10) - Nausea Vomiting Nausea Vomiting: Not Present - Hydration Hydration: Ice chips, Able to void - Discharge PostOp Status: Transfer Patient to floor
[2016-08-27] MEDS: *HR* Morphine 2 MG/ML SYRINGE IVP PRN (19:29)
[2016-08-27] MEDS: *HR* HYDROcodone/Acet 5/325 mg TABLET PO PRN (21:46)
[2016-08-28] MEDS: 0.9 % Sodium Chloride 1,000 ML IVC SCH (03:47)
[2016-08-28 05:16] LABS: Basophils % 0.1 %; Hematocrit 45.3 % (37.5-50.1); Hemoglobin 15.8 g/dL (12.9-16.9); Immature Granulocytes % 0.3 % (0-4); Lymphocytes # 0.8 K/mcL (0.6-4.6); Lymphocytes % 6.9 %; Mean Corpuscular HGB Conc 34.9 g/dL (31.6-35.5); Mean Corpuscular Hemoglobin 32.8 pg (28.0-33.3); Mean Platelet Volume 10.1 fL (9.4-12.4); Monocytes # 0.7 K/mcL (0.0-1.3); Monocytes % 6.2 %; Platelet Count 239 K/mcL (140-400); Red Blood Count 4.82 M/mcL (4.19-5.50); Red Cell Distribution Width 11.9 % (11.5-14.5); Segmented Neutrophils % 86.5 %
[2016-08-28 05:32] LABS: BUN/Creatinine Ratio 12 (6-26); Blood Urea Nitrogen 11 mg/dL (8-26); Calcium 9.3 mg/dL (8.6-10.8); Carbon Dioxide 26 mEq/L (19-29); Chloride 108 mEq/L (98-109); Glucose 123 mg/dL (70-99); Neutrophils # 9.3 K/mcL (1.6-8.9); Osmolality,Calculated 295 (280-300); Potassium 4.4 mEq/L (3.5-4.5); Sodium 142 mEq/L (136-145); eGFR For African Americans > 60 (> 60); eGFR For Non-African Americans > 60 (> 60)
[2016-08-28] MEDS: Famotidine 20 MG TABLET PO SCH (07:16)
[2016-08-28] MEDS: Sucralfate 1 GM TABLET PO SCH (07:16)
[2016-08-28] MEDS: *HR* Heparin 5,000 UNIT/ML VIAL SQ SCH (07:17)
[2016-08-28] MEDS: *HR* HYDROcodone/Acet 5/325 mg TABLET PO PRN (07:22)
[2016-08-28 07:46] VITALS: BP 163/94
--- NOTE | 2016-08-28 11:50 | Discharge Summary ---
<Osbaldo Saraviassluis Keen - Last Filed: 08/28/16 14:18> Date of Encounter: 08/28/16 Time of Encounter: 09:00 - Discharge Diagnosis (1) Biliary dyskinesia Priority: Primary Status: Acute (2) Abdominal pain Priority: Primary Status: Acute Qualifiers: Abdominal location: epigastric Qualified Code(s): R10.13 - Epigastric pain (3) Hepatic steatosis Priority: Secondary Status: Chronic (4) Elevated lipase Priority: Secondary Status: Resolved (5) Hematuria Priority: Secondary Status: Resolved (6) DVT prophylaxis Priority: Secondary Status: Acute - Discharge Medications Prescriptions: OxyCODONE/APAP 5/325 [Percocet 5/325 MG] 1 each PO Q6HR PRN #30 tablet PRN Reason: Pain Docusate [Colace] 100 mg PO BID #30 capsule Home Medications: Dicyclomine [Bentyl] 10 mg PO TID PRN #10 capsule 08/25/16 [Rx] Multivitamin [Multi-Day Vitamins] 1 each PO DAILY 08/25/16 [History] Omeprazole 20 mg PO DAILY #7 tablet. 08/25/16 [Rx] Ondansetron HCl [Zofran] 4 mg SL TID PRN #10 tablet 08/25/16 [Rx] Docusate [Colace] 100 mg PO BID #30 capsule 08/27/16 [Rx] OxyCODONE/APAP 5/325 [Percocet 5/325 MG] 1 each PO Q6HR PRN #30 tablet 08/27/16 [Rx] Allergies/Adverse Reactions: Allergies colamycin ear drops Allergy (Uncoded 05/07/16 20:57) Rash Procedures/tests Complete & Pending: Procedures Performed prior 72 hours Category Date Time Status CT abd pelvis wo no iv no oral [CT] Stat Cat Scan 08/26/16 11:55 Completed NM hepatobiliary w drug [NM] Stat Exams 08/26/16 14:43 Completed Date of admission: 08/25/16 18:19 Primary care physician: PCP NO Consults: 08/26/16 03:08 Consult to Nutrition [CONS] Routine Comment: Consulting Provider: NUTRITION Reason for Dietary Consult: Diet Education 08/27/16 13:09 Consult to Surgery [CONS] Routine Consulting Provider: Bala Manuel Reason for Consult: billiary dyskinesia Time Notified: 13:10 Call Completed: No Discharging clinician: Kwesi Rivera Anticipated date of discharge: 08/28/16 - Patient Status Disposition: Home, Self-Care Condition: Good Functional capacity at discharge: independent ambulation Overall status at discharge: patient is progressing back to baseline - Discharge Instructions Follow Up With: Ami Gray CNP [Advanced Practice Nurse] - 09/08/16 8:30 am (surgery follow-up) Evelin Biswas CNP [Advanced Practice Nurse] - 09/12/16 8:00 am Forms: Work/School Release Additional Instructions: #1 may shower 08/28/16, no tub bath for 2 weeks #2 wash incisions with soap and water and pat dry daily #3 no lifting, pushing, pulling more than 15 pounds for the next 2 weeks #4 no driving until off narcotics for 24 hours and able to safely react in the car #5 may climb stairs - Diet and Activity Activity: increase activity as tolerated Diet: low fat, low cholesterol Hospital course: Mr. Eisenberg is a 41 year old male who presented to hospital with acute onset RUQ abdominal pain. He was evaluated. HIDA scan demonstrated low ejection fraction of GB, no acute cholecystitis. Therefore, patient was diagnosed with biliary dyskinesia. He is s/p day#1 lab opal per surgery. Patient is in stable condition. He is passing flatus. He will be discharged to home with pain medication and laxatives. On RUQ US, patient was found to have hepatic steatosis. Nutritional counseling was provided. Patient will follow up with PCP for treatment of hepatic steatosis. He will also follow with [facility] for lap opal. Patient may return to work on light-duty for 6 weeks. After this time, he may return to full-duty once cleared by his surgeon. - Time Spent with Patient Total time spent providing and/or coordinating discharge services: Greater than 30 minutes (40 minutes including time with patient and coordinating care) - Constitutional Vitals: Temp Pulse Resp BP Pulse Ox 98.2 F 74 18 163/94 94 08/28/16 07:33 08/28/16 07:33 08/28/16 07:33 08/28/16 07:33 08/28/16 07:33 General appearance: Present: A&O X 3, pleasant, answers questions appropriately - Head Head exam: Present: atraumatic, normocephalic - Eye Eye exam: Present: PERRL, conjuntiva pink, sclera anicteric Pupils: Present: PERRL - Neck Neck exam general surgery: Present: supple, trachea midline. Absent: lymphadenopathy - Respiratory Respiratory exam: Present: CTAB. Absent: accessory muscle use, rales, rhonchi, wheezes - Cardiovascular Cardiovascular exam: Present: RRR, +S1, +S2. Absent: diastolic murmur, gallop, rubs, systolic murmur - GI/Abdominal GI/Abdominal exam: Present: normal bowel sounds, soft, tenderness (Expected post -surgical tenderness. Port-site incisions are clean, dry, and intact. ), no peritoneal signs. Absent: distended - Extremities Exam Extremities exam: Present: warm, radial pulses palpable and symetrical. Absent : calf tenderness, cyanotic, pedal edema - Neurological Exam Neurological exam: Present: CN II-XII intact, oriented X3, no focal deficits. Absent: pronater drift, facial droop, speech deficit - Skin Skin exam: Present: dry, intact - VTE Documentation of Mechanical Device: Intermittent pneumatic compression device <Kwesi Rivera - Last Filed: 08/28/16 18:58> Date of Encounter: 08/28/16 Procedures/tests Complete & Pending: Procedures Performed prior 72 hours Category Date Time Status CT abd pelvis wo no iv no oral [CT] Stat Cat Scan 08/26/16 11:55 Completed NM hepatobiliary w drug [NM] Stat Exams 08/26/16 14:43 Completed Date of admission: 08/25/16 18:19 Primary care physician: PCP NO Consults: 08/26/16 03:08 Consult to Nutrition [CONS] Routine Comment: Consulting Provider: NUTRITION Reason for Dietary Consult: Diet Education 08/27/16 13:09 Consult to Surgery [CONS] Routine Consulting Provider: Bala Manuel Reason for Consult: billiary dyskinesia Time Notified: 13:10 Call Completed: No Hospital course: Mr. Eisenberg is a 41 year old male - Time Spent with Patient Total time spent providing and/or coordinating discharge services: - Constitutional Vitals: Temp Pulse Resp BP Pulse Ox 98.2 F 74 18 163/94 94 08/28/16 07:33 08/28/16 07:33 08/28/16 07:33 08/28/16 07:33 08/28/16 07:33 - Attending Attestation I examined this patient and my medical decision-making was reviewed with the Resident Physician, Dr Elizabeth Saravia. I agree with the documented findings, disposition and treatment plan as described. Patient tells me that his right upper quadrant pain has resolved. He does still have some incisional pain. Denies nausea. Tolerated a regular diet. He is able to ambulate in the hallway. On exam he is in no acute distress. Heart is regular rate rhythm S1-S2. Abdomen is soft nontender nondistended with positive bowel sounds.
--- NOTE | 2016-09-10 12:42 | Operative Note ---
Date of procedure: 08/27/16 Pre-op diagnosis: cholecystitis Post-op diagnosis: same Procedure: Laparoscopic cholecystectomy with cholangiogram Anesthesia: CHEPE Surgeon: Bala Manuel Estimated blood loss (cc): 5 Specimen: GB Condition: stable Disposition: same day Procedure in Detail: After informed consent this patient was taken the operating room placed supine position. After adequate sedation anesthesia the abdomen was prepped and draped. A proper timeout was performed. Two towel clamps are placed at the umbilicus and a Veres needle was inserted into the abdomen. A 5 mm incision was made at the umbilicus. A 12 mm incision was made in the subxiphoid region. Two 5 mm incisions were made in the right upper quadrant that were 4 finger breadths and 6 finger breadths below the costal margin. The gallbladder was identified, retracted anteriorly and cephalad, and the infundibulum was skeletonized. The cystic duct was easily identified and was dissected free. A ductotomy was created in the cystic duct. A taut catheter was placed within the cystic duct and clipped. A cholangiogram was performed. Contrast filled the cystic duct, common hepatic duct, hepatic radicles, and the distal common bile duct. There was flow of contrast into the duodenum. Once this was confirmed the clippers removed, the taut catheter was removed as well, and the cystic duct was clipped distally. The cystic duct was then transected with scissors. The gallbladder was resected off the liver surface. There was excellent hemostasis. The gallbladder was then retrieved through the 12 mm cannula site. At this point the abdomen was suctioned dry and the pneumoperitoneum was then evacuated. All ports were removed. The 12 mm cannula site was closed with an 0 Vicryl suture in [id number] fashion. The skin was closed with 4-0 Vicryl suture. Dermabond was placed as well. All instrument counts and needle counts are correct in the operation. The patient tolerated the procedure well and was transferred to the PACU in stable condition.
== END 2016-08-28 12:57 | disposition home or self-care (01) ==
LOC: EMEROO 11:56 → 3ANU 11:56 → SUATTDRO 18:19 → 3ANU 18:55
PROVIDERS: ADMIT Nurse Practitioner Family; ATTEND Internal Medicine

== ENCOUNTER 2019-10-19 05:22 | Inpatient (IN) ==
[2019-10-19] MEDS ORDERED: Acetaminophen 325 MG TABLET PO PRN (07:41)
[2019-10-19] MEDS ORDERED: Ondansetron 4 MG/2 ML VIAL IVP PRN (07:41)
[2019-10-19] MEDS ORDERED: Naloxone 0.4 MG/ML INJ IVP PRN (07:41)
[2019-10-19] MEDS ORDERED: *HR* Heparin 5,000 UNIT/ML VIAL IVP ONE (07:44)
[2019-10-19] MEDS ORDERED: *HR* Heparin 5,000 UNIT/ML VIAL IVP PRN ×2 (07:44)
[2019-10-19 09:46] LABS: Hematocrit 41.1 % (37.5-50.1); Hemoglobin 13.9 g/dL (12.9-16.9); Mean Corpuscular HGB Conc 33.8 g/dL (31.6-35.5); Mean Corpuscular Hemoglobin 32.6 pg (28.0-33.3); Mean Corpuscular Volume 96.3 fL (83.0-100.0); Mean Platelet Volume 9.5 fL (9.4-12.4); Platelet Count 159 K/mcL (140-400); Red Blood Count 4.27 M/mcL (4.19-5.50); Red Cell Distribution Width 12.3 % (11.5-14.5); White Blood Count 3.9 K/mcL (4.3-11.1)
[2019-10-19 09:54] LABS: INR 1.1
[2019-10-19] MEDS: Heparin 25,000 UNIT/250 ML D5W 25,000 UNIT/250 ML IV.SOLN IVC SCH ×2 (10:08→23:06)
[2019-10-19] MEDS: Famotidine 20 MG/2 ML VIAL IVP SCH ×2 (12:35→16:23)
[2019-10-20] MEDS: Famotidine 20 MG/2 ML VIAL IVP SCH ×2 (05:19→17:12)
[2019-10-20] MEDS ORDERED: Azithromycin 500 MG in 0.9 % Sodium Chloride 250 ML IVPB SCH (09:00)
[2019-10-20] MEDS ORDERED: cefTRIAXone 1,000 MG in Water for inj. (sterile) 10 ML IVP SCH (09:00)
[2019-10-20] MEDS ORDERED: *HR* Rivaroxaban 15 MG TABLET PO SCH (09:00)
[2019-10-20] MEDS ORDERED: Metoprolol XL (24 HR) Succ 25 MG TAB.ER.24H PO SCH (11:15)
[2019-10-20] MEDS ORDERED: Aspirin 81 MG TAB.CHEW PO SCH (11:15)
[2019-10-20 16:44] VITALS: BP 118/88
== END 2019-10-20 17:50 | disposition home or self-care (01) | DRG 177 ==
LOC: CDU → SUATTDRO 06:54 → CDU 07:00 → 2NENU 12:03
PROVIDERS: ADMIT Pharmacist; ATTEND Pharmacist